=== PATIENT | male | born 2000 | race Caucasian/White ===

== ENCOUNTER 2021-11-23 18:08 | Emergency (ER) | payer MEDICAID ==
[~2021-11-23] VITALS: Ht 152.4 cm; Wt 82.6 kg
[2021-11-23 18:09] VITALS: BP 140/85
[2021-11-23] MEDS ORDERED: CEPH250T PO (18:36)
== END 2021-11-23 18:49 | disposition home or self-care (01) ==
LOC: ER 18:08
DX: L60.0 Ingrowing nail (principal); M79.675 Pain in left toe(s); Z79.2 Long term (current) use of antibiotics
CPT/HCPCS: 99283